=== PATIENT | female | born 1950 | race Caucasian/White ===

== ENCOUNTER 2016-07-28 12:25 | Emergency (ER) | payer MEDICARE ==
[2016-07-28 12:49] VITALS: BP 154/79; PULSE 89; O2SAT 96
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
== END 2016-07-28 15:00 | disposition home or self-care (01) ==
LOC: ED 12:25
DX: S16.1XXA Strain of muscle, fascia and tendon at neck level, initial encounter (principal); M54.2 Cervicalgia; V49.59XA Passenger injured in collision with other motor vehicles in traffic accident, initial encounter
CPT/HCPCS: 72125; 99282; 99284; L0120

== ENCOUNTER 2020-08-11 13:23 | Emergency (ER) | payer MEDICARE ==
--- NOTE | 2020-08-11 13:29 | ERPHSYRPT ---
- History of Present Illness Time Seen by Provider: 08/11/20 13:28 Source: patient Exam Limitations: no limitations Physician History: This is a morbidly obese 70-year-old white female who is diabetic and has hypothyroidism, COPD, hypertension and gastroesophageal reflux disease. She has some cardiac arrhythmia issues. She sees Dr. Brito as her director experimental medicine. She went to see the outpatient clinic because of cough and worsening shortness of breath. Patient denies chest pain. Patient states that she does have body aches. However, she says that this is not changed from her typical body aches. This was this past Thursday. She had a COVID-19 test which returned negative this past Thursday. Patient did not undergo chest x-ray. Patient completed her albuterol inhaler treatment and steroid therapy. Patient feels that she needs an antibiotic. Patient presents from the clinic today mildly wheezing but oxygenating well. Patient has not been taking her Lasix as prescribed. She states she has also not been taking her chronic daily Alverto inhaler as prescr ibed Timing/Duration: day(s) (Approximately 5 days) Activities at Onset: activity Severity of Dyspnea-Max: mild Severity of Dyspnea-Current: mild Possible Cause: occasional episodes Modifying Factors: Improves With: activity, albuterol inhaler, coughing Associated Symptoms: cough, No chest pain/discomfort Allergies/Adverse Reactions: dextromethorphan [From Delsym] Allergy (Intermediate, Verified 07/28/16 12:50) Hives morphine Allergy (Intermediate, Verified 07/28/16 12:50) Hives penicillin G Allergy (Intermediate, Verified 07/28/16 12:50) Hives Sulfa (Sulfonamide Antibiotics) Allergy (Intermediate, Verified 07/28/16 12:50) Hives influenza A (H1N1) virus vaccine m-alen-split 2008 [From influenza A (H1N1)] Allergy (Verified 08/11/20 13:34) Home Medications: Fluoxetine HCl [Prozac] 40 mg PO BID 07/28/16 [History] Furosemide 40 mg [Lasix 40 MG] 40 mg PO BID 07/28/16 [History] Insulin Glargine [Lantus Insulin] 0 unit SQ UD 07/28/16 [History] Levothyroxine Sodium 25 Mcg [Synthroid 25 Mcg] 25 mcg PO DAILY 07/28/16 [History] Lisinopril 10 mg [Zestril 10 MG] 10 mg PO DAILY 07/28/16 [History] Omeprazole [Prilosec] 40 mg PO DAILY 07/28/16 [History] Tiotropium [place] Inhaler [Spiriva 18 Mcg/Cap Inhaler] 1 ea IH DAILY 07/28/16 [History] Hx Tetanus, Diphtheria Vaccination/Date Given: No Hx Influenza Vaccination/Date Given: No Hx Pneumococcal Vaccination/Date Given: No Travel Risk - International Travel Have you traveled outside of the country in past 3 weeks: No - Coronavirus Screening Are you exhibiting any of the following symptoms?: No Close contact with a COVID-19 positive Pt in past 14-21 Days: No - Review of Systems Constitutional: No Symptoms Eyes: No Symptoms Ears, Nose, & Throat: No Symptoms Respiratory: Cough, Dyspnea on Exertion (DUPONT) Cardiac: No Symptoms Abdominal/Gastrointestinal: No Symptoms Genitourinary Symptoms: No Symptoms Musculoskeletal: No Symptoms Skin: No Symptoms Neurological: No Symptoms Psychological: No Symptoms Endocrine: No Symptoms Hematologic/Lymphatic: No Symptoms Immunological/Allergic: No Symptoms All Other Systems: Reviewed and Negative - Past Medical History Pertinent Past Medical History: Yes Neurological History: No Pertinent History ENT History: No Pertinent History Cardiac History: Arrhythmia, High Cholesterol Respiratory History: COPD Endocrine Medical History: Diabetes Type II GI Medical History: Gallbladder Disease - Past Surgical History Past Surgical History: Yes Gastrointestinal: Cholecystectomy Other Surgical History: VERTICAL BANDING. SKIN CA - Social History Smoking Status: Never smoker Exposure to second hand smoke: No Drug Use: none Patient Lives Alone: No - Nursing Vital Signs Nursing Vital Signs: Initial Vital Signs Temperature 98.5 F 08/11/20 13:27 Pulse Rate 83 08/11/20 13:27 Respiratory Rate 24 08/11/20 13:27 Blood Pressure 151/102 08/11/20 13:27 O2 Sat by Pulse Oximetry 95 08/11/20 13:27 Pain Scale Pain Intensity 4 - Physical Exam General Appearance: no apparent distress, alert, anxiety, obese Ears, Nose, Throat Exam: hearing grossly normal Neck Exam: normal inspection, non-tender, supple, full range of motion Respiratory Exam: airway intact, wheezing (Mild bilateral), No chest tenderness, No respiratory distress Cardiovascular/Chest Exam: normal heart sounds, regular rate/rhythm Abdominal/Gastrointestinal Exam: soft, normal bowel sounds, No tenderness, No guarding Extremity Exam: non-tender, normal range of motion, normal inspection, normal capillary refill, no calf tenderness, no pedal edema, pelvis stable Neurologic Exam: alert, oriented x 3, cooperative, document coordinator II-XII nml as tested, no rmal mood/affect, nml cerebellar function, nml station & gait, sensation nml Skin Exam: normal color, warm, dry Lymphatic Exam: No adenopathy SpO2 Interpretation: normal O2 Delivery: Room Air - Course Nursing assessment & vital signs reviewed: Yes EKG Interpreted by Me: RATE (81), Sinus Rhythm, prolonged QT interval (Borderline), Left Bundle Branch Block (Incomplete), Other (PVCs present. No acute ischemic changes on today's EKG. No comparison EKG available) Ordered Tests: Active Orders 24 hr Category Date Time Status Director Talent Acquisition STAT Care 08/11/20 13:53 Active EKG-ER Only STAT Care 08/11/20 13:53 Active IV Insertion STAT Care 08/11/20 13:53 Active Pulse Oximetry (ED) STAT Care 08/11/20 13:53 Active CHEST 1 VIEW (PORTABLE) Stat Exams 08/11/20 13:53 Taken CHEST WITH CONTRAST [CT] Stat Exams 08/11/20 15:17 Taken BLOOD CULTURE Stat Lab 08/11/20 14:42 Received CBC W DIFF Stat Lab 08/11/20 13:53 Completed CMP Stat Lab 08/11/20 14:42 Completed D-DIMER QUANTITATIVE Stat Lab 08/11/20 14:42 Completed Lactic Acid Stat Lab 08/11/20 14:10 Completed Manual Differential NC Stat Lab 08/11/20 13:53 Completed NT PRO BNP Stat Lab 08/11/20 14:42 Completed PROTIME WITH INR Stat Lab 08/11/20 14:42 Completed TROPONIN Q3H Lab 08/11/20 14:00 Completed TROPONIN Q3H Lab 08/11/20 18:30 Ordered TROPONIN Q3H Lab 08/11/20 21:30 Ordered TROPONIN Q3H Lab 08/12/20 00:30 Ordered TROPONIN Q3H Lab 08/12/20 03:30 Ordered Peak Expiratory Flow Rate ONCE RT 08/11/20 14:19 Active Respiratory Therapy Assessment DAILY RT 08/11/20 14:19 Active Respiratory Therapy Consult ONCE RT 08/11/20 14:19 Completed Medication Summary Discontinued Medications Generic Name Dose Route Start Last Admin Trade Name Kyleigh PRN Reason Stop Dose Admin Albuterol/Ipratropium Confirm 08/11/20 14:05 Duoneb 0.5-3 Mg/3 Ml Neb Administered 08/11/20 14:06 Dose 3 ml IH .STK-MED ONE Albuterol/Ipratropium 3 ml 08/11/20 14:14 08/11/20 14:10 Duoneb 0.5-3 Mg/3 Ml Neb IH 08/11/20 14:15 3 ml STAT ONE Administration Furosemide 40 mg 08/11/20 13:55 08/11/20 14:05 Lasix 40 Mg/4 Ml IV 08/11/20 13:56 40 mg STAT ONE Administration Furosemide Confirm 08/11/20 14:04 Lasix 40 Mg/4 Ml Administered 08/11/20 14:05 Dose 40 mg .ROUTE .STK-MED ONE Levofloxacin/Dextrose 500 mg in 100 mls @ 100 mls/hr 08/11/20 13:53 08/11/20 15:09 Levofloxacin 500mg/100ml D5w IV 08/11/20 14:52 Infused STAT STA Infusion Levofloxacin/Dextrose Confirm 08/11/20 14:04 Levofloxacin 500mg/100ml D5w Administered 08/11/20 14:05 Dose 500 mg in 100 mls @ ud IV .STK-MED ONE Sodium Chloride 500 mls @ 500 mls/hr 08/11/20 15:16 08/11/20 15:28 Sodium Chloride 0.9% 500 Ml IV 08/11/20 16:15 500 mls/hr .Q1H ONE Administration Sodium Chloride Confirm 08/11/20 15:24 Sodium Chloride 0.9% 500 Ml Administered 08/11/20 15:25 Dose 500 mls @ ud IV .STK-MED ONE Methylprednisolone Sodium Succinate 125 mg 08/11/20 13:55 08/11/20 14:05 Solu-Medrol 125 Mg IV 08/11/20 13:56 125 mg STAT ONE Administration Methylprednisolone Sodium Succinate Confirm 08/11/20 14:04 Solu-Medrol 125 Mg Administered 08/11/20 14:05 Dose 125 mg .ROUTE .STK-MED ONE Lab/Rad Data: Laboratory Result Diagrams 08/11/20 13:53 08/11/20 14:42 Laboratory Results 08/11/20 08/11/20 08/11/20 Range/Units 14:42 14:42 14:10 WBC (4.0-10.5) K/mm3 RBC (4.1-5.4) M/mm3 Hgb (12.0-16.0) gm/dl Hct (35-47) % MCV (78-100) fl MCH (26-32) pg MCHC (32-36) g/dl RDW (11.5-14.0) % Plt Count (150-450) K/mm3 MPV (7.5-11.0) fl Segmented Neutrophils (36.0-66.0) % Lymphocytes (Manual) (24-44) % Monocytes (Manual) (0.0-12.0) % Toxic Granulation Platelet Estimate (NORMAL) RBC Morphology PT 12.6 H (9.95-12.35) SECONDS INR 1.11 (0.8-3.0) D-Dimer 753 H* (215-500) ng/mL Sodium 133 L (137-145) mmol/L Potassium 3.8 (3.5-5.1) mmol/L Chloride 90 L (98-107) mmol/L Carbon Dioxide 32 H (22-30) mmol/L Anion Gap 14.8 (5-15) MEQ/L BUN 22 H (7-17) mg/dL Creatinine 0.75 (0.52-1.04) mg/dL Estimated GFR > 60.0 ML/MIN Glucose 322 H (74-106) mg/dL Lactic Acid 3.5 H (0.4-2.0) Calcium 10.2 (8.4-10.2) mg/dL Total Bilirubin 0.70 (0.2-1.3) mg/dL AST 23 (14-36) U/L ALT 20 (0-35) U/L Alkaline Phosphatase 176 H (38-126) U/L Troponin I (0.000-0.034) ng/mL NT-Pro-B Natriuret Pep 282 (0-900) pg/mL Serum Total Protein 8.4 H (6.3-8.2) g/dL Albumin 4.4 (3.5-5.0) g/dL 08/11/20 08/11/20 Range/Units 14:00 13:53 WBC 17.9 H (4.0-10.5) K/mm3 RBC 5.79 H (4.1-5.4) M/mm3 Hgb 16.2 H (12.0-16.0) gm/dl Hct 50.3 H (35-47) % MCV 86.9 (78-100) fl MCH 28.0 (26-32) pg MCHC 32.2 (32-36) g/dl RDW 14.0 (11.5-14.0) % Plt Count 344 (150-450) K/mm3 MPV 12.8 H (7.5-11.0) fl Segmented Neutrophils 72 H (36.0-66.0) % Lymphocytes (Manual) 23 L (24-44) % Monocytes (Manual) 5 (0.0-12.0) % Toxic Granulation 1+ Platelet Estimate NORMAL (NORMAL) RBC Morphology NORMAL PT (9.95-12.35) SECONDS INR (0.8-3.0) D-Dimer (215-500) ng/mL Sodium (137-145) mmol/L Potassium (3.5-5.1) mmol/L Chloride (98-107) mmol/L Carbon Dioxide (22-30) mmol/L Anion Gap (5-15) MEQ/L BUN (7-17) mg/dL Creatinine (0.52-1.04) mg/dL Estimated GFR ML/MIN Glucose (74-106) mg/dL Lactic Acid (0.4-2.0) Calcium (8.4-10.2) mg/dL Total Bilirubin (0.2-1.3) mg/dL AST (14-36) U/L ALT (0-35) U/L Alkaline Phosphatase (38-126) U/L Troponin I < 0.012 (0.000-0.034) ng/mL NT-Pro-B Natriuret Pep (0-900) pg/mL Serum Total Protein (6.3-8.2) g/dL Albumin (3.5-5.0) g/dL - Progress Progress: improved, re-examined Air Movement: good Progress Note: 08/11/20 16:53 CAT scan of the chest with contrast shows calcified coronary artery disease, no pulmonary embolism or aortic dissection. No consolidation no pneumonia or infiltrate present. Blood Culture(s) Obtained: No Antibiotics given: Yes Counseled pt/family regarding: lab results, diagnosis, need for follow-up, rad results - Departure Departure Disposition: Home Clinical Impression: Leukocytosis, Bronchitis, Upper respiratory infection Condition: Stable Critical Care Time: No Referrals: Kenzie Vallejo NP [NON-STAFF PHY W/O PRIVILEGES] - Additional Instructions: Drink plenty of fluids. Take your medications as prescribed. Follow-up with your primary care physician for further management. Prescriptions: Prednisone 10 mg [Deltasone 10 mg] 10 mg PO TID #12 tablet Albuterol 8 gm Mdi Hfa [Ventolin Hfa MDI] 8 gm IH Q4H #1 hfa.aer.ad Azithromycin 250 mg [Zithromax 250 MG TABLET] 250 mg PO ZPACK #6 tablet
[2020-08-11] MEDS ORDERED: Levofloxacin 500MG/100ML D5W 500 MG/100 ML BAG IV STA (13:53)
[2020-08-11] MEDS ORDERED: Lasix 40 MG/4 ML IV ONE (13:55)
[2020-08-11] MEDS ORDERED: solu-MEDROL 125 MG IV ONE (13:55)
[2020-08-11] MEDS ORDERED: Levofloxacin 500MG/100ML D5W 500 MG/100 ML BAG IV ONE (14:04)
[2020-08-11] MEDS ORDERED: Lasix 40 MG/4 ML ONE (14:04)
[2020-08-11] MEDS ORDERED: solu-MEDROL 125 MG ONE (14:04)
[2020-08-11] MEDS ORDERED: DUONEB 0.5-3 MG/3 ml Neb IH ONE ×4 (14:05→17:32)
[2020-08-11 14:38] LABS: Hematocrit 50.3 % (35-47); Hemoglobin 16.2 gm/dl (12.0-16.0); Mean Cell Volume 86.9 fl (78-100); Mean Corpuscular Hgb Concent. 32.2 g/dl (32-36); Mean Platelet Volume 12.8 fl (7.5-11.0); Platelet Count 344 K/mm3 (150-450); Red Blood Count 5.79 M/mm3 (4.1-5.4); White Blood Count 17.9 K/mm3 (4.0-10.5)
[2020-08-11 14:49] LABS: INR 1.11 (0.8-3.0); PROTIME 12.6 SECONDS (9.95-12.35)
[2020-08-11 15:02] LABS: ALBUMIN 4.4 g/dL (3.5-5.0); ALKALINE PHOSPHATASE 176 U/L (38-126); ANION GAP 14.8 MEQ/L (5-15); BLOOD UREA NITROGEN 22 mg/dL (7-17); CHLORIDE 90 mmol/L (98-107); Calcium 10.2 mg/dL (8.4-10.2); Carbon Dioxide 32 mmol/L (22-30); Creatinine 1 0.75 mg/dL (0.52-1.04); EST GLOMERULAR FILTRATION RATE > 60.0 ML/MIN; Glucose 322 mg/dL (74-106); NT PRO BNP 282 pg/mL (0-900); Potassium 3.8 mmol/L (3.5-5.1); SGOT/AST 23 U/L (14-36); SGPT/ALT 20 U/L (0-35); SODIUM 133 mmol/L (137-145); Total Protein 8.4 g/dL (6.3-8.2)
[2020-08-11] MEDS ORDERED: Sodium Chloride 0.9% 500 ML 500 ML IV ONE ×2 (15:16→15:24)
[2020-08-11 16:04] LABS: Lymphocytes 23 % (24-44); Monocyte 5 % (0.0-12.0); Neutrophils 72 % (36.0-66.0); Platelet Estimate NORMAL (NORMAL); Total Cells Counted 100; Toxic Granulation 1+
[2020-08-11 17:11] VITALS: BP 138/86; PULSE 80; O2SAT 94
--- NOTE | 2020-08-11 18:40 | XRAY ---
Indication: Short of breath. COPD. Elevated d-dimer. Multiple contiguous axial images obtained through the chest using 100 cc Isovue 370 contrast and PE protocol. Comparison: None There is good opacification of the pulmonary arteries to include the lobar and segmental branches. No pulmonary embolus. Heart is not enlarged. Aorta is normal in course and caliber. Tiny right hilar calcified node. No pathologic mediastinal/hilar lymphadenopathy. Lungs demonstrates minimal bilateral dependent atelectasis. No suspicious pulmonary mass/nodule, infiltrate, or effusion. Bony thorax intact with mild osteopenia and mild degenerative changes throughout the spine. Limited upper abdomen demonstrates fatty liver, cholecystectomy clips, and hepatic/splenic calcified granulomas. Impression: 1. Negative pulmonary embolus. No acute cardiopulmonary abnormalities. 2. Incidental fatty liver, chronic bony findings, and old granulomatous disease. Comment: Preliminary interpretation was made by [facility]. No critical discrepancy.
--- NOTE | 2020-08-11 18:42 | XRAY ---
Indication: Cough and short of breath. Comparison: November 03, 2018. Portable apical lordotic chest less inflated and remains clear. Heart is not enlarged. Bony thorax intact again with mild degenerative changes. No new/acute findings.
== END 2020-08-11 17:45 | disposition left against medical advice (07) ==
LOC: ED 13:23
DX: D72.829 Elevated white blood cell count, unspecified (principal); J40 Bronchitis, not specified as acute or chronic; J06.9 Acute upper respiratory infection, unspecified; E11.9 Type 2 diabetes mellitus without complications; E03.9 Hypothyroidism, unspecified; J44.9 Chronic obstructive pulmonary disease, unspecified; I10 Essential (primary) hypertension; K21.9 Gastro-esophageal reflux disease without esophagitis; Z79.899 Other long term (current) drug therapy
CPT/HCPCS: 36415; 71045; 71260; 80053; 83605; 83880; 84484; 85025; 85379; 85610; 87040; 93005; 93041; 94150; 94640; 94760; 96360; 96365; 96374; 96375; 99285; J1940; J1956; J2930; A9270-GY

== ENCOUNTER 2022-06-02 23:02 | Emergency (ER) | payer MEDICARE ==
[2022-06-02] MEDS ORDERED: TYLENOL 325 MG PO STA (23:46)
[2022-06-03 00:07] LABS: Absolute Neutrophil Ct (ANC) 7.69 x10^3/uL (1.4-6.9); Basophil (Absolute #) 0.05 x10^3/uL (0-0.4); Eosinophil % 0.8 % (0.00-5.0); Eosinophil (Absolute #) 0.08 x10^3/uL (0-0.5); Hematocrit 37.5 % (35-47); Lymphocyte (Absolute #) 1.07 x10^3/uL (1.0-4.6); Lymphocytes % 11.2 % (24.0-44.0); Mean Cell Volume 89.1 fL (78-100); Mean Corpuscular Hemoglobin 28.5 pg (26-32); Mean Platelet Volume 11.6 fL (7.5-11.0); Monocyte (Absolute #) 0.62 x10^3/uL (0.0-1.3); Monocytes % 6.5 % (0.0-12.0); Neutrophil % 80.4 % (36.0-66.0); Platelet Count 258 x10^3/uL (150-450); Red Blood Count 4.21 x10^6/uL (4.1-5.4); Red Cell Distribution Width 14.1 % (11.5-14.0); White Blood Count 9.6 x10^3/uL (4.0-10.5)
[2022-06-03] MEDS ORDERED: TYLENOL 325 MG ONE (00:08)
[2022-06-03 00:34] LABS: Potassium 3.8 mmol/L (3.5-5.1)
[2022-06-03 00:37] LABS: INR 1.08 (0.8-3.0); PROTIME 11.4 SECONDS (9.4-12.5)
[2022-06-03 00:41] LABS: ALBUMIN 3.3 g/dL (3.5-5.0); ALKALINE PHOSPHATASE 182 U/L (38-126); BLOOD UREA NITROGEN 8 mg/dL (7-17); CHLORIDE 96 mmol/L (98-107); CK-Creatinine Phosphokinase 31 U/L (30-135); Calcium 8.3 mg/dL (8.4-10.2); Carbon Dioxide 30 mmol/L (22-30); Creatinine 1 0.62 mg/dL (0.52-1.04); EST GLOMERULAR FILTRATION RATE > 60.0 ML/MIN; Glucose 262 mg/dL (74-106); LIPASE 57 U/L (23-300); MAGNESIUM 1.6 mg/dL (1.6-2.3); NT PRO BNP 369 pg/mL (0-900); SGOT/AST 27 U/L (14-36); SGPT/ALT 19 U/L (0-35); SODIUM 128 mmol/L (137-145); Total Protein 7.1 g/dL (6.3-8.2)
[2022-06-03 00:43] LABS: ANION GAP 5.8 MEQ/L (5-15)
[2022-06-03] MEDS ORDERED: Magnesium Sulfate 1 GM/2 ML VIAL IV ONE (00:45)
[2022-06-03 00:48] LABS: D-DIMER QUANTITATIVE 0.98 mg/L (0.0-0.50)
[2022-06-03] MEDS ORDERED: Magnesium 1 Gm / 100 Ml D5W*** 100 ML IV ONE ×2 (00:49→00:51)
[2022-06-03] MEDS ORDERED: Sodium Chloride 0.9% 1000 ML 1,000 ML ONE (00:52)
[2022-06-03] MEDS ORDERED: Sodium Chloride 0.9% 1000 ML 1,000 ML IV SCH (01:00)
[2022-06-03 01:39] LABS: Folate (Folic Acid) 10.9 ng/mL (2.76 - >20)
[2022-06-03 01:52] LABS: Appearance CLEAR (CLEAR); Bilirubin NEGATIVE (NEGATIVE); Dipstick done @ ? MAIN LAB; Glucose 500 mg/dL (NEGATIVE); Ketones NEGATIVE (NEGATIVE); Nitrite NEGATIVE (NEGATIVE); Protein,Urine Dip >=300 (Negative); RBC TRACE-INTACT Ery/ul (0-5); Specific Gravity 1.025 (1.005-1.025); Urobilinogen 0.2 mg/dL (0-1)
[2022-06-03 01:54] LABS: Mucus SLIGHT /HPF (NEGATIVE); Urine Cultured Indicated? NO
--- NOTE | 2022-06-03 03:53 | ERPHSYRPT ---
- History of Present Illness Source: patient Exam Limitations: no limitations Patient Subjective Stated Complaint: pt states she was getting up the bathroom and fell sideways in front of her chair, states she did not hit hesd but has had a headache for 2 days Triage Nursing Assessment: pt alert and oriented, laying in bed holding head Physician History: 72yo F presented to the ER w/ worsening weakness over the past 3 days. She reports 3 falls s/out injury, LOC in the past week. Patient also reports N/V, decreased appetite, diffuse abd pain, dysuria, frequency and urgency. She has DM and glucose has been over 300 at home. She denies CP, palpitations or SOB. Timing/Duration: day(s) (3) Severity: mild Modifying Factors: Improves With: nothing Associated Symptoms: nausea, vomiting, abdominal pain, headaches, weakness Allergies/Adverse Reactions: dextromethorphan [From Delsym] Allergy (Intermediate, Verified 07/28/16 12:50) Hives morphine Allergy (Intermediate, Verified 07/28/16 12:50) Hives penicillin G Allergy (Intermediate, Verified 07/28/16 12:50) Hives Sulfa (Sulfonamide Antibiotics) Allergy (Intermediate, Verified 07/28/16 12:50) Hives influenza A (H1N1) virus vaccine m-alen-split 2008 [From influenza A (H1N1)] Allergy (Verified 08/11/20 13:34) Home Medications: Fluoxetine HCl [Prozac] 40 mg PO BID 07/28/16 [History] Furosemide 40 mg [Lasix 40 MG] 40 mg PO BID 07/28/16 [History] Insulin Glargine [Lantus Insulin] 0 unit SQ UD 07/28/16 [History] Levothyroxine Sodium 25 Mcg [Synthroid 25 Mcg] 25 mcg PO DAILY 07/28/16 [History] Lisinopril 10 mg [Zestril 10 MG] 10 mg PO DAILY 07/28/16 [History] Omeprazole [Prilosec] 40 mg PO DAILY 07/28/16 [History] Tiotropium [place] Inhaler [Spiriva 18 Mcg/Cap Inhaler] 1 ea IH DAILY 07/28/16 [History] Hx Tetanus, Diphtheria Vaccination/Date Given: No Hx Influenza Vaccination/Date Given: No Hx Pneumococcal Vaccination/Date Given: No Travel Risk - International Travel Have you traveled outside of the country in past 3 weeks: No - Coronavirus Screening Are you exhibiting any of the following symptoms?: No Close contact with a COVID-19 positive Pt in past 14-21 Days: No - Vaccine Status Have you recieved a Covid-19 vaccination: No - Review of Systems Constitutional: Fatigue, Malaise, Weakness, No Fever, No Chills Eyes: No Symptoms Ears, Nose, & Throat: No Symptoms Respiratory: No Symptoms Cardiac: No Symptoms Abdominal/Gastrointestinal: Abdominal Pain, Nausea, Vomiting, Appetite Changes Genitourinary Symptoms: Dysuria, Frequency, Urgency Musculoskeletal: No Symptoms Skin: No Symptoms Neurological: Headache, No Focal Weakness Psychological: No Symptoms Endocrine: No Symptoms Hematologic/Lymphatic: No Symptoms Immunological/Allergic: No Symptoms All Other Systems: Reviewed and Negative - Past Medical History Pertinent Past Medical History: Yes Neurological History: No Pertinent History ENT History: No Pertinent History Cardiac History: Arrhythmia, High Cholesterol Respiratory History: COPD Endocrine Medical History: Diabetes Type II GI Medical History: Gallbladder Disease - Past Surgical History Past Surgical History: Yes Gastrointestinal: Cholecystectomy Other Surgical History: VERTICAL BANDING. SKIN CA - Social History Smoking Status: Never smoker Exposure to second hand smoke: No Drug Use: none Patient Lives Alone: No - Nursing Vital Signs Nursing Vital Signs: Initial Vital Signs Temperature 98.7 F 06/02/22 23:03 Pulse Rate 93 H 06/02/22 23:03 Respiratory Rate 22 06/02/22 23:03 Blood Pressure 167/95 06/02/22 23:03 O2 Sat by Pulse Oximetry 96 06/02/22 23:03 Pain Scale Pain Intensity 4 - Physical Exam General Appearance: no apparent distress, obese Eye Exam: PERRL/EOMI Ears, Nose, Throat Exam: normal ENT inspection Neck Exam: normal inspection, non-tender, supple, full range of motion Respiratory Exam: normal breath sounds, lungs clear Cardiovascular Exam: regular rate/rhythm, normal heart sounds Gastrointestinal/Abdomen Exam: soft, tenderness, No distention, No guarding, No rebound Extremity Exam: normal inspection, normal range of motion, No calf tenderness, No david's sign, No swelling, No tenderness Neurologic Exam: alert, oriented x 3, cooperative, licensing manager II-XII nml as tested, nml cerebellar function Skin Exam: normal color, warm, dry SpO2 Interpretation: borderline oxygenation SpO2: 92 O2 Delivery: Room Air - Course Nursing assessment & vital signs reviewed: Yes EKG Interpreted by Me: RATE (94), Sinus Rhythm, NORMAL AXIS, NORMAL INTERVALS, Left Bundle Branch Block (old) - Radiology Exams Chest X-ray Interpretation: Interpreted by me, Negative - CT Exams Chest CT Interpretation: No PE Ordered Tests: Medication Summary Discontinued Medications Generic Name Dose Route Start Last Admin Trade Name Kyleigh PRN Reason Stop Dose Admin Acetaminophen 650 mg 06/02/22 23:46 06/03/22 00:09 Acetaminophen 325 Mg Tablet PO 06/02/22 23:47 650 mg STAT STA Administration Acetaminophen Confirm 06/03/22 00:08 Acetaminophen 325 Mg Tablet Administered 06/03/22 00:09 Dose 650 mg .ROUTE .STK-MED ONE Sodium Chloride 1,000 mls @ 100 mls/hr 06/03/22 01:00 06/03/22 00:53 Sodium Chloride 0.9% 1000 Ml IV 07/03/22 00:59 100 mls/hr .Q10H ALTAF Administration Magnesium Sulfate/Dextrose 100 mls @ 200 mls/hr 06/03/22 00:51 06/03/22 00:53 Magnesium 1 Gm / 100 Ml D5w IV 06/03/22 01:20 200 mls/hr STAT ONE Administration Magnesium Sulfate/Dextrose Confirm 06/03/22 00:49 Magnesium 1 Gm / 100 Ml D5w Administered 06/03/22 00:50 Dose 100 mls @ ud IV .STK-MED ONE Sodium Chloride Confirm 06/03/22 00:52 Sodium Chloride 0.9% 1000 Ml Administered 06/03/22 00:53 Dose 1,000 mls @ ud .ROUTE .STK-MED ONE Magnesium Sulfate 1 gm 06/03/22 00:45 06/03/22 00:51 Magnesium Sulfate Injection IV 06/03/22 00:46 Not Given ONCE ONE Lab/Rad Data: Laboratory Result Diagrams 06/02/22 00:02 06/03/22 03:45 Laboratory Results 06/03/22 06/03/22 06/03/22 Range/Units Unknown Unknown 03:45 WBC (4.0-10.5) x10^3/uL RBC (4.1-5.4) x10^6/uL Hgb (12.0-16.0) g/dL Hct (35-47) % MCV (78-100) fL MCH (26-32) pg MCHC (32-36) g/dL RDW (11.5-14.0) % Plt Count (150-450) x10^3/uL MPV (7.5-11.0) fL Gran % (36.0-66.0) % Immature Gran % (Auto) (0.00-0.4) % Nucleat RBC Rel Count (0.00-0.1) % Eos # (Auto) (0-0.5) x10^3/uL Immature Gran # (Auto) (0.00-0.03) x10^3u/L Absolute Lymphs (auto) (1.0-4.6) x10^3/uL Absolute Monos (auto) (0.0-1.3) x10^3/uL Absolute Nucleated RBC (0.00-0.01) x10^3u/L Lymphocytes % (24.0-44.0) % Monocytes % (0.0-12.0) % Eosinophils % (0.00-5.0) % Basophils % (0.0-0.4) % Absolute Granulocytes (1.4-6.9) x10^3/uL Basophils # (0-0.4) x10^3/uL PT (9.4-12.5) SECONDS INR (0.8-3.0) APTT (25.1-36.5) SECONDS D-Dimer (0.0-0.50) mg/L Sodium 128 L (137-145) mmol/L Potassium 3.6 (3.5-5.1) mmol/L Chloride 98 (98-107) mmol/L Carbon Dioxide 29 (22-30) mmol/L Anion Gap 4.6 L (5-15) MEQ/L BUN 7 (7-17) mg/dL Creatinine 0.61 (0.52-1.04) mg/dL Estimated GFR > 60.0 ML/MIN Glucose 267 H (74-106) mg/dL Hemoglobin A1c (4.5-6.0) % Serum Osmolality Pending Lactic Acid (0.4-2.0) Calcium 8.3 L (8.4-10.2) mg/dL Magnesium (1.6-2.3) mg/dL Total Bilirubin (0.2-1.3) mg/dL AST (14-36) U/L ALT (0-35) U/L Alkaline Phosphatase (38-126) U/L Creatine Kinase (30-135) U/L Troponin I (0.000-0.034) ng/mL NT-Pro-B Natriuret Pep (0-900) pg/mL Serum Total Protein (6.3-8.2) g/dL Albumin (3.5-5.0) g/dL Lipase (23-300) U/L Vitamin B12 (239-931) pg/mL Folic Acid (2.76 - >20) ng/mL Urinalys Dipstick Clnc Urine Color (YELLOW) Urine Appearance (CLEAR) Urine pH (5-6) Ur Specific [place] (1.005-1.025) POC Urine Protein Conf (Negative) Urine Ketones (NEGATIVE) Urine Nitrite (NEGATIVE) Urine Bilirubin (NEGATIVE) Urine Urobilinogen (0-1) mg/dL Urine Leukocytes (NEGATIVE) Urine WBC (Auto) (0-5) /HPF Urine RBC (Auto) (0-2) /HPF U Epithel Cells (Auto) (FEW) /HPF Urine Bacteria (Auto) (NEGATIVE) /HPF Urine RBC (0-5) Kiran/ul Urine Mucus (Auto) (NEGATIVE) /HPF Ur Culture Indicated? Urine Osmolality 687 (.) mOsmol/kg Ur Random Creatinine 125.9 mg/dl U Random Total Protein 263.0 (<12) mg/dl U [place] Prot/Creat Ratio 2.09 H (0.0-0.15) mg/mg Urine Sodium 186 H (30-90) mmol/L Urine Glucose (NEGATIVE) mg/dL 06/03/22 06/03/22 06/03/22 Range/Units 03:45 01:41 01:12 WBC (4.0-10.5) x10^3/uL RBC (4.1-5.4) x10^6/uL Hgb (12.0-16.0) g/dL Hct (35-47) % MCV (78-100) fL MCH (26-32) pg MCHC (32-36) g/dL RDW (11.5-14.0) % Plt Count (150-450) x10^3/uL MPV (7.5-11.0) fL Gran % (36.0-66.0) % Immature Gran % (Auto) (0.00-0.4) % Nucleat RBC Rel Count (0.00-0.1) % Eos # (Auto) (0-0.5) x10^3/uL Immature Gran # (Auto) (0.00-0.03) x10^3u/L Absolute Lymphs (auto) (1.0-4.6) x10^3/uL Absolute Monos (auto) (0.0-1.3) x10^3/uL Absolute Nucleated RBC (0.00-0.01) x10^3u/L Lymphocytes % (24.0-44.0) % Monocytes % (0.0-12.0) % Eosinophils % (0.00-5.0) % Basophils % (0.0-0.4) % Absolute Granulocytes (1.4-6.9) x10^3/uL Basophils # (0-0.4) x10^3/uL PT (9.4-12.5) SECONDS INR (0.8-3.0) APTT (25.1-36.5) SECONDS D-Dimer (0.0-0.50) mg/L Sodium (137-145) mmol/L Potassium (3.5-5.1) mmol/L Chloride (98-107) mmol/L Carbon Dioxide (22-30) mmol/L Anion Gap (5-15) MEQ/L BUN (7-17) mg/dL Creatinine (0.52-1.04) mg/dL Estimated GFR ML/MIN Glucose (74-106) mg/dL Hemoglobin A1c (4.5-6.0) % Serum Osmolality Lactic Acid 1.4 (0.4-2.0) Calcium (8.4-10.2) mg/dL Magnesium (1.6-2.3) mg/dL Total Bilirubin (0.2-1.3) mg/dL AST (14-36) U/L ALT (0-35) U/L Alkaline Phosphatase (38-126) U/L Creatine Kinase (30-135) U/L Troponin I < 0.012 (0.000-0.034) ng/mL NT-Pro-B Natriuret Pep (0-900) pg/mL Serum Total Protein (6.3-8.2) g/dL Albumin (3.5-5.0) g/dL Lipase (23-300) U/L Vitamin B12 (239-931) pg/mL Folic Acid (2.76 - >20) ng/mL Urinalys Dipstick Clnc MAIN LAB Urine Color YELLOW (YELLOW) Urine Appearance CLEAR (CLEAR) Urine pH 7.0 (5-6) Ur Specific [place] 1.025 (1.005-1.025) POC Urine Protein Conf >=300 A (Negative) Urine Ketones NEGATIVE (NEGATIVE) Urine Nitrite NEGATIVE (NEGATIVE) Urine Bilirubin NEGATIVE (NEGATIVE) Urine Urobilinogen 0.2 (0-1) mg/dL Urine Leukocytes NEGATIVE (NEGATIVE) Urine WBC (Auto) NONE (0-5) /HPF Urine RBC (Auto) NONE (0-2) /HPF U Epithel Cells (Auto) NONE (FEW) /HPF Urine Bacteria (Auto) NONE (NEGATIVE) /HPF Urine RBC TRACE-INTACT A (0-5) Kiran/ul Urine Mucus (Auto) SLIGHT A (NEGATIVE) /HPF Ur Culture Indicated? NO Urine Osmolality (.) mOsmol/kg Ur Random Creatinine mg/dl U Random Total Protein (<12) mg/dl U [place] Prot/Creat Ratio (0.0-0.15) mg/mg Urine Sodium (30-90) mmol/L Urine Glucose 500 A (NEGATIVE) mg/dL 06/02/22 06/02/22 06/02/22 Range/Units 00:02 00:02 00:02 WBC (4.0-10.5) x10^3/uL RBC (4.1-5.4) x10^6/uL Hgb (12.0-16.0) g/dL Hct (35-47) % MCV (78-100) fL MCH (26-32) pg MCHC (32-36) g/dL RDW (11.5-14.0) % Plt Count (150-450) x10^3/uL MPV (7.5-11.0) fL Gran % (36.0-66.0) % Immature Gran % (Auto) (0.00-0.4) % Nucleat RBC Rel Count (0.00-0.1) % Eos # (Auto) (0-0.5) x10^3/uL Immature Gran # (Auto) (0.00-0.03) x10^3u/L Absolute Lymphs (auto) (1.0-4.6) x10^3/uL Absolute Monos (auto) (0.0-1.3) x10^3/uL Absolute Nucleated RBC (0.00-0.01) x10^3u/L Lymphocytes % (24.0-44.0) % Monocytes % (0.0-12.0) % Eosinophils % (0.00-5.0) % Basophils % (0.0-0.4) % Absolute Granulocytes (1.4-6.9) x10^3/uL Basophils # (0-0.4) x10^3/uL PT (9.4-12.5) SECONDS INR (0.8-3.0) APTT (25.1-36.5) SECONDS D-Dimer (0.0-0.50) mg/L Sodium (137-145) mmol/L Potassium (3.5-5.1) mmol/L Chloride (98-107) mmol/L Carbon Dioxide (22-30) mmol/L Anion Gap (5-15) MEQ/L BUN (7-17) mg/dL Creatinine (0.52-1.04) mg/dL Estimated GFR ML/MIN Glucose (74-106) mg/dL Hemoglobin A1c 10.32 H (4.5-6.0) % Serum Osmolality Lactic Acid (0.4-2.0) Calcium (8.4-10.2) mg/dL Magnesium (1.6-2.3) mg/dL Total Bilirubin (0.2-1.3) mg/dL AST (14-36) U/L ALT (0-35) U/L Alkaline Phosphatase (38-126) U/L Creatine Kinase (30-135) U/L Troponin I < 0.012 (0.000-0.034) ng/mL NT-Pro-B Natriuret Pep (0-900) pg/mL Serum Total Protein (6.3-8.2) g/dL Albumin (3.5-5.0) g/dL Lipase (23-300) U/L Vitamin B12 316 (239-931) pg/mL Folic Acid 10.9 (2.76 - >20) ng/mL Urinalys Dipstick Clnc Urine Color (YELLOW) Urine Appearance (CLEAR) Urine pH (5-6) Ur Specific [place] (1.005-1.025) POC Urine Protein Conf (Negative) Urine Ketones (NEGATIVE) Urine Nitrite (NEGATIVE) Urine Bilirubin (NEGATIVE) Urine Urobilinogen (0-1) mg/dL Urine Leukocytes (NEGATIVE) Urine WBC (Auto) (0-5) /HPF Urine RBC (Auto) (0-2) /HPF U Epithel Cells (Auto) (FEW) /HPF Urine Bacteria (Auto) (NEGATIVE) /HPF Urine RBC (0-5) Kiran/ul Urine Mucus (Auto) (NEGATIVE) /HPF Ur Culture Indicated? Urine Osmolality (.) mOsmol/kg Ur Random Creatinine mg/dl U Random Total Protein (<12) mg/dl U [place] Prot/Creat Ratio (0.0-0.15) mg/mg Urine Sodium (30-90) mmol/L Urine Glucose (NEGATIVE) mg/dL 06/02/22 06/02/22 06/02/22 Range/Units 00:02 00:02 00:02 WBC 9.6 (4.0-10.5) x10^3/uL RBC 4.21 (4.1-5.4) x10^6/uL Hgb 12.0 (12.0-16.0) g/dL Hct 37.5 (35-47) % MCV 89.1 (78-100) fL MCH 28.5 (26-32) pg MCHC 32.0 (32-36) g/dL RDW 14.1 H (11.5-14.0) % Plt Count 258 (150-450) x10^3/uL MPV 11.6 H (7.5-11.0) fL Gran % 80.4 H (36.0-66.0) % Immature Gran % (Auto) 0.6 H (0.00-0.4) % Nucleat RBC Rel Count 0.0 (0.00-0.1) % Eos # (Auto) 0.08 (0-0.5) x10^3/uL Immature Gran # (Auto) 0.06 H (0.00-0.03) x10^3u/L Absolute Lymphs (auto) 1.07 (1.0-4.6) x10^3/uL Absolute Monos (auto) 0.62 (0.0-1.3) x10^3/uL Absolute Nucleated RBC 0.00 (0.00-0.01) x10^3u/L Lymphocytes % 11.2 L (24.0-44.0) % Monocytes % 6.5 (0.0-12.0) % Eosinophils % 0.8 (0.00-5.0) % Basophils % 0.5 (0.0-0.4) % Absolute Granulocytes 7.69 H (1.4-6.9) x10^3/uL Basophils # 0.05 (0-0.4) x10^3/uL PT 11.4 (9.4-12.5) SECONDS INR 1.08 (0.8-3.0) APTT 36.0 (25.1-36.5) SECONDS D-Dimer 0.98 H* (0.0-0.50) mg/L Sodium 128 L (137-145) mmol/L Potassium 3.8 (3.5-5.1) mmol/L Chloride 96 L (98-107) mmol/L Carbon Dioxide 30 (22-30) mmol/L Anion Gap 5.8 (5-15) MEQ/L BUN 8 (7-17) mg/dL Creatinine 0.62 (0.52-1.04) mg/dL Estimated GFR > 60.0 ML/MIN Glucose 262 H (74-106) mg/dL Hemoglobin A1c (4.5-6.0) % Serum Osmolality Lactic Acid (0.4-2.0) Calcium 8.3 L (8.4-10.2) mg/dL Magnesium 1.6 (1.6-2.3) mg/dL Total Bilirubin 1.00 (0.2-1.3) mg/dL AST 27 (14-36) U/L ALT 19 (0-35) U/L Alkaline Phosphatase 182 H (38-126) U/L Creatine Kinase 31 (30-135) U/L Troponin I (0.000-0.034) ng/mL NT-Pro-B Natriuret Pep 369 (0-900) pg/mL Serum Total Protein 7.1 (6.3-8.2) g/dL Albumin 3.3 L (3.5-5.0) g/dL Lipase 57 (23-300) U/L Vitamin B12 (239-931) pg/mL Folic Acid (2.76 - >20) ng/mL Urinalys Dipstick Clnc Urine Color (YELLOW) Urine Appearance (CLEAR) Urine pH (5-6) Ur Specific [place] (1.005-1.025) POC Urine Protein Conf (Negative) Urine Ketones (NEGATIVE) Urine Nitrite (NEGATIVE) Urine Bilirubin (NEGATIVE) Urine Urobilinogen (0-1) mg/dL Urine Leukocytes (NEGATIVE) Urine WBC (Auto) (0-5) /HPF Urine RBC (Auto) (0-2) /HPF U Epithel Cells (Auto) (FEW) /HPF Urine Bacteria (Auto) (NEGATIVE) /HPF Urine RBC (0-5) Kiran/ul Urine Mucus (Auto) (NEGATIVE) /HPF Ur Culture Indicated? Urine Osmolality (.) mOsmol/kg Ur Random Creatinine mg/dl U Random Total Protein (<12) mg/dl U [place] Prot/Creat Ratio (0.0-0.15) mg/mg Urine Sodium (30-90) mmol/L Urine Glucose (NEGATIVE) mg/dL - Progress Progress: unchanged Progress Note: CTA showed no PE. Na 128, 1L Nacl given and BMP repeated Na still at 128. Urine studies ordered. Hb a1c 10.3, Troponin neg x 2. Due to Na of 128 not correcting and inability to ambulate will admit. Patient refuses COVID testing and want to leave AMA, risks of leaving discussed w/ patient and she would like to proceed w/ leaving AMA. 06/05/22 18:07 Discussed with : Dustin Will see patient in: other (Left AMA) Counseled pt/family regarding: lab results, diagnosis, need for follow-up, rad results - Departure Departure Disposition: AMA Clinical Impression: Hyponatremia, Generalized weakness, Frequent falls Uncontrolled diabetes mellitus Qualifiers: Diabetes mellitus type: type 2 Glycemic state: with hyperglycemia Qualified Code(s): E11.65 - Type 2 diabetes mellitus with hyperglycemia Condition: Stable Critical Care Time: No Referrals: PAULETTE LEIGH MD [Primary Care Provider] - Follow up/PCP as directed Instructions: Preventing Falls in Older Adults
[2022-06-03 04:10] LABS: ANION GAP 4.6 MEQ/L (5-15); BLOOD UREA NITROGEN 7 mg/dL (7-17); CHLORIDE 98 mmol/L (98-107); Calcium 8.3 mg/dL (8.4-10.2); Carbon Dioxide 29 mmol/L (22-30); Creatinine 1 0.61 mg/dL (0.52-1.04); EST GLOMERULAR FILTRATION RATE > 60.0 ML/MIN; Glucose 267 mg/dL (74-106); Potassium 3.6 mmol/L (3.5-5.1); SODIUM 128 mmol/L (137-145)
[2022-06-03 05:18] VITALS: BP 134/78; PULSE 94
--- NOTE | 2022-06-03 09:36 | XRAY ---
Indication: Chest pain, dyspnea, nausea, headaches, and diarrhea. Elevated d-dimer. Multiple contiguous axial images obtained through the chest using 100 cc Isovue 370 contrast and PE protocol. Comparison: August 11, 2020 Adequate opacification of the pulmonary arteries. No obvious pulmonary embolus. Heart is not enlarged. Aorta is normal in course and caliber. Stable tiny right hilar calcified node. No pathologic mediastinal/hilar lymphadenopathy. Lungs again demonstrate minimal posterior right lung subsegmental atelectasis/scarring. No suspicious pulmonary mass, infiltrate, consolidation, or effusion. Bony thorax intact again with mild osteopenia and mild degenerative changes throughout the spine. Limited upper abdomen again demonstrates fatty liver and gastric postsurgical changes. 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 Metastasis not completely excluded in the right clinical setting. Impression: 1. Negative pulmonary embolus. No new/acute cardiopulmonary abnormalities. 2. Grossly stable enhancing splenic lesions and probably hemangiomas. Metastasis not completely excluded in the right clinical setting. 3. Chronic findings including fatty liver, chronic bony findings, and old granulomatous disease. Comment: Preliminary interpretation made by [facility]. No critical discrepancy.
--- NOTE | 2022-06-03 09:38 | XRAY ---
Indication: Chest pain and dyspnea. Comparison: August 11, 2020 Portable chest remains inflated and clear. Heart not enlarged for AP portable technique. Bony thorax intact again with mild osteopenia and degenerative changes. No new/acute findings.
[2022-06-03 18:20] LABS: Creatinine, Urine Random 125.9 mg/dl; Protein Creatinine Ratio, Ran. 2.09 mg/mg (0.0-0.15)
[2022-06-05 16:29] LABS: Osmolality, Urine 687 mOsmol/kg (.)
[2022-06-05 17:22] VITALS: O2SAT 92
== END 2022-06-03 05:29 | disposition left against medical advice (07) ==
LOC: ED 23:02
DX: E87.1 Hypo-osmolality and hyponatremia (principal); R53.1 Weakness; Z91.81 History of falling; E11.65 Type 2 diabetes mellitus with hyperglycemia; R51.9 Headache, unspecified; E78.5 Hyperlipidemia, unspecified; J44.9 Chronic obstructive pulmonary disease, unspecified; Z79.4 Long term (current) use of insulin; Z79.899 Other long term (current) drug therapy; Z28.310 Unvaccinated for COVID-19
CPT/HCPCS: 36000; 36415; 71045; 71260; 80048; 80053; 81015; 82550; 82570; 82607; 82746; 83036; 83605; 83690; 83735; 83880; 83930; 83935; 84156; 84300; 84484; 85025; 85379; 85610; 85730; 93005; 93041; 94760; 99284; J3475; A9270-GY

== ENCOUNTER → 2024-02-22 | Emergency (ER) | payer MEDICARE, SELFPAY ==
--- NOTE | 2024-02-22 14:08 | ERPHSYRPT ---
- History of Present Illness Time Seen by Provider: 02/22/24 14:08 Source: patient, family Exam Limitations: no limitations Allergies/Adverse Reactions: dextromethorphan [From Delsym] Allergy (Intermediate, Verified 07/28/16 12:50) Hives morphine Allergy (Intermediate, Verified 07/28/16 12:50) Hives penicillin G Allergy (Intermediate, Verified 07/28/16 12:50) Hives Sulfa (Sulfonamide Antibiotics) Allergy (Intermediate, Verified 07/28/16 12:50) Hives influenza A (H1N1) virus vaccine m-alen-split 2009 [From influenza A (H1N1)] Allergy (Verified 08/11/20 13:34) Home Medications: Fluoxetine HCl [Prozac] 40 mg PO BID 07/28/16 [History] Furosemide 40 mg [Lasix 40 MG] 40 mg PO BID 07/28/16 [History] Insulin Glargine [Lantus Insulin] 0 unit SQ UD 07/28/16 [History] Levothyroxine Sodium 25 Mcg [Synthroid 25 Mcg] 25 mcg PO DAILY 07/28/16 [History] Lisinopril 10 mg [Zestril 10 MG] 10 mg PO DAILY 07/28/16 [History] Omeprazole [Prilosec] 40 mg PO DAILY 07/28/16 [History] Tiotropium [place] Inhaler [Spiriva 18 Mcg/Cap Inhaler] 1 ea IH DAILY 07/28/16 [History] Hx Tetanus, Diphtheria Vaccination/Date Given: No Hx Influenza Vaccination/Date Given: No Hx Pneumococcal Vaccination/Date Given: No - Past Medical History Pertinent Past Medical History: Yes Neurological History: No Pertinent History ENT History: No Pertinent History Cardiac History: Arrhythmia, High Cholesterol Respiratory History: COPD Endocrine Medical History: Diabetes Type II GI Medical History: Gallbladder Disease - Past Surgical History Past Surgical History: Yes Gastrointestinal: Cholecystectomy Other Surgical History: VERTICAL BANDING. SKIN CA - Social History Smoking Status: Never smoker Exposure to second hand smoke: No Drug Use: none Patient Lives Alone: No - Departure Referrals: PAULETTE LEIGH MD [Primary Care Provider] - Follow up/PCP as directed
[2024-02-22 14:15] VITALS: BP 147/85; PULSE 76; RESP 18; TEMP 98.1; O2SAT 99
== END ==
LOC: ED 11:43
DX: R51.9 Headache, unspecified (principal)
CPT/HCPCS: 99281; G0463

== ENCOUNTER 2024-07-12 12:30 | Emergency (ER) | payer MEDICARE, SELFPAY ==
[2024-07-12 13:08] VITALS: RESP 18; TEMP 97.3
--- NOTE | 2024-07-12 13:36 | ERPHSYRPT ---
- History of Present Illness Time Seen by Provider: 07/12/24 13:20 Source: patient Exam Limitations: no limitations Patient Subjective Stated Complaint: pt here for a fall x2 yesterday,co pain all over, she is a poor historian. she states she is not worried about an injury, she states she doesn 't feel well Triage Nursing Assessment: pt alert, walked in with cane, resp easy, skin w/d/p. denies loc, has edema to lower legs that she states was normal for her Physician History: 74-year-old female lives independently history of CHF presents to our ED for evaluation of leg swelling generalized weakness. Patient reports that her legs are "wobbly". Patient fell twice yesterday. No injuries. Patient states that her ability to think is "fuzzy". No headache. Intermittent chest pain. No nausea no vomiting no diaphoresis. Symptoms are mild to moderate in intensity. No specific worsening or improving factors. Patient reports a history of "abnormal electrolytes". Patient denies change in urine output. No diarrhea no rash no fever. Patient otherwise feels well. She voices no other complaints or concerns at this time. Portions of this note were created with voice recognition technology. There may be grammatical, spelling, punctuation or sound alike errors Timing/Duration: yesterday Severity: moderate Modifying Factors: Improves With: nothing Allergies/Adverse Reactions: dextromethorphan [From Delsym] Allergy (Intermediate, Verified 07/12/24 13:07) Hives morphine Allergy (Intermediate, Verified 07/12/24 13:07) Hives penicillin G Allergy (Intermediate, Verified 07/12/24 13:07) Hives Sulfa (Sulfonamide Antibiotics) Allergy (Intermediate, Verified 07/12/24 13:07) Hives influenza A (H1N1) virus vaccine m-alen-split 2008 [From influenza A (H1N1)] Allergy (Verified 07/12/24 13:07) Home Medications: Fluoxetine HCl [Prozac] 40 mg PO BID 07/28/16 [History] Furosemide 40 mg [Lasix 40 MG] 40 mg PO BID 07/28/16 [History] Insulin Glargine [Lantus Insulin] 0 unit SQ UD 07/28/16 [History] Levothyroxine Sodium 25 Mcg [Synthroid 25 Mcg] 25 mcg PO DAILY 07/28/16 [History] Lisinopril 10 mg [Zestril 10 MG] 10 mg PO DAILY 07/28/16 [History] Omeprazole [Prilosec] 40 mg PO DAILY 07/28/16 [History] Tiotropium [place] Inhaler [Spiriva 18 Mcg/Cap Inhaler] 1 ea IH DAILY 07/28/16 [History] Hx Tetanus, Diphtheria Vaccination/Date Given: No Hx Influenza Vaccination/Date Given: No Hx Pneumococcal Vaccination/Date Given: No Immunizations Up to Date: Yes Travel Risk - International Travel Have you traveled outside of the country in past 3 weeks: No - Emerging Infectious Disease Are you exhibiting symptoms associated with any current EIDs: No Symptoms: Headaches/Body Aches/, Vomitting Comment: c/o headaches from fall, and states "I do need eyeglasses" - Review of Systems Constitutional: No Symptoms, No Fever, No Chills Eyes: No Symptoms Ears, Nose, & Throat: No Symptoms Respiratory: No Symptoms, No Cough, No Dyspnea Cardiac: No Symptoms, No Chest Pain, No Edema, No Syncope Abdominal/Gastrointestinal: No Symptoms, No Abdominal Pain, No Nausea, No Vomiting, No Diarrhea Genitourinary Symptoms: No Symptoms, No Dysuria Musculoskeletal: No Symptoms, No Back Pain, No Neck Pain Skin: No Symptoms, No Rash Neurological: No Symptoms, No Dizziness, No Focal Weakness, No Sensory Changes Psychological: No Symptoms Endocrine: No Symptoms Hematologic/Lymphatic: No Symptoms Immunological/Allergic: No Symptoms All Other Systems: Reviewed and Negative - Past Medical History Pertinent Past Medical History: Yes Neurological History: No Pertinent History ENT History: No Pertinent History Cardiac History: Arrhythmia, High Cholesterol Respiratory History: COPD Endocrine Medical History: Diabetes Type II GI Medical History: Gallbladder Disease Other Medical History: pvc - Past Surgical History Past Surgical History: Yes Gastrointestinal: Cholecystectomy Other Surgical History: VERTICAL BANDING. SKIN CA - Social History Smoking Status: Never smoker Exposure to second hand smoke: No Drug Use: none Patient Lives Alone: No - Social Determinants of Health Will the patient participate in the screening: Yes Do you worry about a steady place to live?: No Do you have any problems with any of the following?: No known problems In the past 12 months,have you had to go without utilities?: No Transportation Issues: No Has anyone in your support network made you feel unsafe?: No Have you or anyone in your house had to go without enough: No - Nursing Vital Signs Nursing Vital Signs: Initial Vital Signs Temperature 97.3 F 07/12/24 13:07 Pulse Rate 76 07/12/24 13:07 Respiratory Rate 18 07/12/24 13:07 Blood Pressure 155/61 07/12/24 13:07 O2 Sat by Pulse Oximetry 99 07/12/24 13:07 Pain Scale Pain Intensity 8 - Physical Exam General Appearance: no apparent distress, alert Eye Exam: PERRL/EOMI, eyes nml inspection Ears, Nose, Throat Exam: normal ENT inspection, moist mucous membranes Neck Exam: normal inspection, non-tender, supple, full range of motion Respiratory Exam: normal breath sounds, lungs clear, airway intact, No respiratory distress Cardiovascular Exam: regular rate/rhythm, normal heart sounds, normal peripheral pulses Gastrointestinal/Abdomen Exam: soft, normal bowel sounds, No tenderness, No mass Back Exam: normal inspection, normal range of motion, No CVA tenderness, No vertebral tenderness Extremity Exam: normal inspection, normal range of motion, pelvis stable Neurologic Exam: alert, oriented x 3, cooperative, normal mood/affect, nml cerebellar function, nml station & gait, sensation nml, No motor deficits Skin Exam: normal color, warm, dry, No rash Lymphatic Exam: No adenopathy SpO2 Interpretation: normal SpO2: 99 O2 Delivery: Room Air - Course Nursing assessment & vital signs reviewed: Yes EKG Interpreted by Me: RATE ([id number]), Sinus Rhythm, NORMAL AXIS, NORMAL INTERVALS, Left Bundle Branch Block (Patient's left bundle branch block present on previous EKG) Ordered Tests: Active Orders 24 hr Category Date Time Status Software Development Analyst STAT Care 07/12/24 13:32 Active EKG-ER Only STAT Care 07/12/24 13:31 Active IV Insertion STAT Care 07/12/24 13:31 Active Pulse Oximetry (ED) STAT Care 07/12/24 13:31 Active CBC W DIFF Stat Lab 07/12/24 13:41 Completed CMP Stat Lab 07/12/24 13:41 Completed CULTURE,URINE Stat Lab 07/12/24 13:51 Received MAGNESIUM Stat Lab 07/12/24 13:41 Completed NT PRO BNPII Stat Lab 07/12/24 13:41 Completed TROPONIN Q4H Lab 07/12/24 13:41 Completed TROPONIN Q4H Lab 07/12/24 17:45 Ordered TROPONIN Q4H Lab 07/12/24 21:45 Ordered UA W/RFX UR CULTURE Stat Lab 07/12/24 13:51 Completed Medication Summary Generic Name Dose Route Start Last Admin Trade Name Freq PRN Reason Stop Dose Admin Ceftriaxone Sodium 1 gm in 100 mls @ 200 mls/hr 07/12/24 15:16 Rocephin 1 Gm / 100 Ml Nacl IV 07/12/24 15:45 STAT ONE Lab/Rad Data: Laboratory Result Diagrams 07/12/24 13:41 07/12/24 13:41 Laboratory Results 07/12/24 07/12/24 07/12/24 Range/Units 13:51 13:41 13:41 WBC (3.98-10.04) x10^3/uL RBC (3.93-5.22) x10^6/uL Hgb (11.2-15.7) g/dL Hct (34.1-44.9) % MCV (79.4-94.8) fL MCH (25.6-32.2) pg MCHC (32.2-35.5) g/dL RDW (11.7-14.4) % Plt Count (182-369) x10^3/uL MPV (9.4-12.3) fL Gran % (34.0-71.1) % Immature Gran % (Auto) (0.001-0.429) % Nucleat RBC Rel Count (0.00-0.2) % Eos # (Auto) (0.04-0.36) x10^3/uL Immature Gran # (Auto) (0.001-0.031) x10^3u/L Absolute Lymphs (auto) (1.18-3.74) x10^3/uL Absolute Monos (auto) (0.24-0.86) x10^3/uL Absolute Nucleated RBC (0.00-0.012) x10^3u/L Lymphocytes % (19.3-51.7) % Monocytes % (4.7-12.5) % Eosinophils % (0.7-5.8) % Basophils % (0.1-1.2) % Absolute Granulocytes (1.56-6.13) x10^3/uL Basophils # (0.01-0.08) x10^3/uL Sodium 135 (135-145) mmol/L Potassium 4.0 (3.5-5.1) mmol/L Chloride 99 (98-107) mmol/L Carbon Dioxide 30 (22-30) mmol/L Anion Gap 10.3 (5-15) MEQ/L BUN 12 (7-17) mg/dL Creatinine 0.76 (0.52-1.04) mg/dL Estimated GFR 81.2 ML/MIN Glucose 165 H (74-106) mg/dL Calcium 8.9 (8.4-10.2) mg/dL Magnesium 1.6 (1.6-2.3) mg/dL Total Bilirubin 0.70 (0.2-1.3) mg/dL AST 28 (14-36) U/L ALT 21 (0-35) U/L Alkaline Phosphatase 206 H (38-126) U/L Troponin I < 0.012 (0.000-0.033) ng/mL NT-Pro-B Natriuret Pep 186 (<300) pg/mL Serum Total Protein 6.4 (6.3-8.2) g/dL Albumin 3.4 L (3.5-5.0) g/dL Urine Color Yellow (Yellow) Urine Appearance Cloudy A (Clear) Urine pH 6.0 (4.6-8.0) Ur Specific [place] 1.010 (1.005-1.030) Urine Protein 100 A (Negative) Urine Glucose (UA) Negative (Negative) mg/dL Urine Ketones Negative (Negative) Urine Blood Negative (Negative) Urine Nitrite Negative (Negative) Urine Bilirubin Negative (Negative) Urine Urobilinogen 0.2 (0.2) mg/dL Ur Leukocyte Esterase Small A (Negative) U Hyaline Cast (Auto) NONE SEEN (0-2) /LPF Urine Microscopic RBC 0-2 (0-5) /HPF Urine Microscopic WBC 21-50 A (0-5) /HPF Ur Epithelial Cells Few (None Seen) /HPF Urine Bacteria Moderate A (None Seen) /HPF Urine Culture Reflexed YES (NO) 07/12/24 Range/Units 13:41 WBC 9.4 (3.98-10.04) x10^3/uL RBC 4.21 (3.93-5.22) x10^6/uL Hgb 12.0 (11.2-15.7) g/dL Hct 37.5 (34.1-44.9) % MCV 89.1 (79.4-94.8) fL MCH 28.5 (25.6-32.2) pg MCHC 32.0 L (32.2-35.5) g/dL RDW 13.3 (11.7-14.4) % Plt Count 238 (182-369) x10^3/uL MPV 11.6 (9.4-12.3) fL Gran % 73.8 H (34.0-71.1) % Immature Gran % (Auto) 0.4 (0.001-0.429) % Nucleat RBC Rel Count 0.0 (0.00-0.2) % Eos # (Auto) 0.22 (0.04-0.36) x10^3/uL Immature Gran # (Auto) 0.04 H (0.001-0.031) x10^3u/L Absolute Lymphs (auto) 1.60 (1.18-3.74) x10^3/uL Absolute Monos (auto) 0.56 (0.24-0.86) x10^3/uL Absolute Nucleated RBC 0.00 (0.00-0.012) x10^3u/L Lymphocytes % 17.1 L (19.3-51.7) % Monocytes % 6.0 (4.7-12.5) % Eosinophils % 2.3 (0.7-5.8) % Basophils % 0.4 (0.1-1.2) % Absolute Granulocytes 6.91 H (1.56-6.13) x10^3/uL Basophils # 0.04 (0.01-0.08) x10^3/uL Sodium (135-145) mmol/L Potassium (3.5-5.1) mmol/L Chloride (98-107) mmol/L Carbon Dioxide (22-30) mmol/L Anion Gap (5-15) MEQ/L BUN (7-17) mg/dL Creatinine (0.52-1.04) mg/dL Estimated GFR ML/MIN Glucose (74-106) mg/dL Calcium (8.4-10.2) mg/dL Magnesium (1.6-2.3) mg/dL Total Bilirubin (0.2-1.3) mg/dL AST (14-36) U/L ALT (0-35) U/L Alkaline Phosphatase (38-126) U/L Troponin I (0.000-0.033) ng/mL NT-Pro-B Natriuret Pep (<300) pg/mL Serum Total Protein (6.3-8.2) g/dL Albumin (3.5-5.0) g/dL Urine Color (Yellow) Urine Appearance (Clear) Urine pH (4.6-8.0) Ur Specific [place] (1.005-1.030) Urine Protein (Negative) Urine Glucose (UA) (Negative) mg/dL Urine Ketones (Negative) Urine Blood (Negative) Urine Nitrite (Negative) Urine Bilirubin (Negative) Urine Urobilinogen (0.2) mg/dL Ur Leukocyte Esterase (Negative) U Hyaline Cast (Auto) (0-2) /LPF Urine Microscopic RBC (0-5) /HPF Urine Microscopic WBC (0-5) /HPF Ur Epithelial Cells (None Seen) /HPF Urine Bacteria (None Seen) /HPF Urine Culture Reflexed (NO) - Progress Progress: improved Progress Note: 74-year-old female presents for emergency department for evaluation of fall and generalized weakness. Physical exam essentially nonremarkable. Neurologic exam shows no focal or lateralizing symptoms. Laboratory workup negative. UA significant for urinary tract infection. Patient received a dose of Rocephin in our ED. A prescription for Macrobid forwarded to patient's pharmacy. Patient is ambulatory. Patient walked to the bathroom with a normal steady gait. We discussed the option for admission due to her recent falls and generalized weakness. Patient reports "I feel better". Patient states "I do not want to stay". Patient reports "I rather go home". Patient states her son will pick her up. She will stay in close contact with her son as she recovers. Patient agrees to follow-up with her primary care doctor within 48 hours for reevaluation. Patient voices no other complaints or concerns at this time. Portions of this note were created with voice recognition technology. There may be grammatical, spelling, punctuation or sound alike errors Complexity of problem addressed is moderate acute complicated. No critical care time. Complex of data reviewed and analyzed is moderate. Test ordered chest reviewed results analyzed and correlated clinically with history and physical exam. Risk of complication and or risk of morbidity/mortality of patient management is moderate. A prescription for Macrobid forwarded to patient's pharmacy. Vital stable. Time spent to discharge patient is approximately 15 minutes. Plan of care established for shared decision making. No social determinants of health present to impede follow-up. Portions of this note were created with voice recognition technology. There may be grammatical, spelling, punctuation or sound alike errors 07/12/24 15:28 Counseled pt/family regarding: lab results, diagnosis, need for follow-up - Departure Departure Disposition: Home Clinical Impression: Generalized weakness, Fall, UTI (urinary tract infection) Condition: Stable Critical Care Time: No Referrals: PAULETTE LEIGH MD [Primary Care Provider] - Follow up/PCP as directed Additional Instructions: Discharge/Care Plan JANES MARQUIS was seen on 07/12/24 in the Emergency Room. The patient was counseled regarding Diagnosis,Lab results, Imaging studies, need for follow up and when to return to the Emergency Room. Prescriptions given: Discharge Note I have spoken with the patient and/or caregivers. I have explained the patient's condition, diagnosis and treatment plan based on the information available to me at this time. I have answered the patient's and/or caregiver's questions and addressed any concerns. The patient and/or caregivers have as good understanding of the patient's diagnosis, condition and treatment plan as can be expected at this point. The vital signs have been stable. The patient's condition is stable and appropriate for discharge from the emergency department. The patient will pursue further outpatient evaluation with the primary care physician or other designated or consulting physician as outlined in the discharge instructions. The patient and/or caregivers are agreeable to this plan of care and follow-up instructions have been explained in detail. The patient and/or caregivers have received these instruction. The patient/and or caregivers are aware that any significant change in condition or worsening of symptoms should prompt an immediate return to this or the closest emergency department or call 911. Prescriptions: Nitrofurantoin Macro 100 mg [Macrobid 100MG Capsule] 100 mg PO BID 7 Days #14 cap
[2024-07-12 13:48] LABS: Absolute Neutrophil Ct (ANC) 6.91 x10^3/uL (1.56-6.13); BASOPHIL % 0.4 % (0.1-1.2); Basophil (Absolute #) 0.04 x10^3/uL (0.01-0.08); Eosinophil % 2.3 % (0.7-5.8); Eosinophil (Absolute #) 0.22 x10^3/uL (0.04-0.36); Hematocrit 37.5 % (34.1-44.9); IMMATURE GRAN # 0.04 x10^3u/L (0.001-0.031); IMMATURE GRAN % 0.4 % (0.001-0.429); Lymphocytes % 17.1 % (19.3-51.7); Mean Cell Volume 89.1 fL (79.4-94.8); Mean Corpuscular Hemoglobin 28.5 pg (25.6-32.2); Mean Platelet Volume 11.6 fL (9.4-12.3); Monocyte (Absolute #) 0.56 x10^3/uL (0.24-0.86); Neutrophil % 73.8 % (34.0-71.1); Platelet Count 238 x10^3/uL (182-369); Red Blood Count 4.21 x10^6/uL (3.93-5.22); Red Cell Distribution Width 13.3 % (11.7-14.4); White Blood Count 9.4 x10^3/uL (3.98-10.04)
[2024-07-12 14:10] LABS: ALBUMIN 3.4 g/dL (3.5-5.0); ANION GAP 10.3 MEQ/L (5-15); BILIRUBIN,TOTAL 0.7 mg/dL (0.2-1.3); Calcium 8.9 mg/dL (8.4-10.2); Creatinine 1 0.76 mg/dL (0.52-1.04); EST GLOMERULAR FILTRATION RATE 81.2 ML/MIN; MAGNESIUM 1.6 mg/dL (1.6-2.3); Total Protein 6.4 g/dL (6.3-8.2)
[2024-07-12 14:24] LABS: Appearance Cloudy (Clear); Bacteria Moderate /HPF (None Seen); Bilirubin Negative (Negative); Blood Negative (Negative); Epithelial Cells Few /HPF (None Seen); Glucose, Urine Negative (Negative); Hyaline Casts NONE SEEN /LPF (0-2); Ketones Negative (Negative); Leukocyte Esterase Small (Negative); Nitrite Negative (Negative); Protein,Urine Dip 100 (Negative); RBC 0-2 /HPF (0-5); Urobilinogen 0.2 mg/dL (0.2); WBC 21-50 /HPF (0-5)
[2024-07-12 14:49] VITALS: PULSE 84
[2024-07-12 15:14] VITALS: BP 111/55
[2024-07-12 15:18] VITALS: O2SAT 99
[2024-07-12] MEDS ORDERED: ROCEPHIN 1 GM / 100 ML NaCl 1 GM/100 ML IVPB IV ONE (15:23)
[2024-07-12] MEDS: ROCEPHIN 1 GM / 100 ML NaCl 1 GM/100 ML IVPB IV ONE (15:28)
== END 2024-07-12 16:20 | disposition home or self-care (01) ==
LOC: ED 12:30
DX: R53.1 Weakness (principal); N39.0 Urinary tract infection, site not specified; R29.6 Repeated falls; E78.5 Hyperlipidemia, unspecified; E11.9 Type 2 diabetes mellitus without complications; Z79.4 Long term (current) use of insulin; Z79.899 Other long term (current) drug therapy
CPT/HCPCS: 36415; 80053; 81001; 83735; 83880; 84484; 85025; 87086; 93005; 93041; 94760; 96374; 99284; J0696